=== PATIENT | female | born 1955 | race Caucasian/White ===

== ENCOUNTER 2017-03-18 13:30 | Emergency (ER) | payer OTHER ==
[~2017-03-18 13:30] MED LIST: ASMANEX220 MCG INH; ASTHMANEX; CIPROFLOXACIN500 MG PO; COREG12.5 MG PO; CYMBALTA60 MG PO; FLEXERIL10 MG PO; HYDROCODONE BIT1 T11 PO; LIPITOR20 MG PO; LODINE400 MG PO; MOTRIN600 MG PO; MOTRIN800 MG PO; MS CONTIN30 MG PO; NEURONTIN300 MG PO; PERCOCET 325 MG1 TAB PO; PREDNICOT20 MG PO; PYRIDIUM200 MG PO; SPIRIVA -- 3018 MCG INH; VICODIN 5/500 505 MG PO; VOLTAREN75 MG PO; XANAX2 MG PO
== END 2017-03-18 15:50 | disposition home or self-care (01) ==
LOC: ED 13:30
DX: M71.22 Synovial cyst of popliteal space [Baker], left knee (principal); M25.562 Pain in left knee; F17.200 Nicotine dependence, unspecified, uncomplicated; Z88.1 Allergy status to other antibiotic agents; Z88.8 Allergy status to other drugs, medicaments and biological substances; Z79.899 Other long term (current) drug therapy

== ENCOUNTER → 2017-04-19 | Outpatient (CLI) | payer OTHER ==
[2017-04-19 15:25] LABS: BASO % 0.6 % (0.0-1.0); EOS # 0.2 10*3/uL (0.0-0.4); EOS % 3.5 % (1.0-4.0); HEMATOCRIT 47.2 % (37.0-47.0); HEMOGLOBIN 15.8 g/dl (12.0-16.0); LYMPH # 1.9 10*3/uL (1.3-4.4); LYMPH % 27.4 % (27.0-41.0); MEAN CELL VOLUME 92.7 fl (81.0-99.0); MEAN CORPUSCULAR HGB CONC 33.5 g/dl (33.0-37.0); MEAN PLATELET VOLUME 9.5 fl (9.6-12.3); MONO # 0.6 10*3/uL (0.1-1.0); MONO % 8.5 % (3.0-9.0); NEUT # 4.1 10*3/uL (2.3-7.9); NEUT % 59.9 % (47.0-73.0); PLATELET COUNT AUTOMATED 178 10*3/uL (130-400); RED BLOOD COUNT 5.09 10*6/uL (4.10-5.10); RED CELL DISTRI WIDTH 13.3 % (0-14.5); WHITE BLOOD COUNT 6.8 10*3/uL (4.8-10.8)
[2017-04-19 15:49] LABS: ALBUMIN 3.6 gm/dl (3.1-4.5); ALKALINE PHOSPHATASE 35 U/L (45-117); BUN 11 mg/dl (7-24); CHLORIDE 105 mmol/L (98-107); CREATININE 0.75 mg/dL (0.55-1.02); POTASSIUM 3.4 mmol/L (3.5-5.1); SGOT/AST 17 IU/L (3-35); SGPT/ALT 17 U/L (12-78); SODIUM 141 mmol/L (136-145); TOTAL PROTEIN 7.5 gm/dL (6.4-8.2)
== END | disposition home or self-care (01) ==
LOC: LAB 14:55
DX: M05.79 Rheumatoid arthritis with rheumatoid factor of multiple sites without organ or systems involvement (principal)

== ENCOUNTER → 2017-07-28 | Outpatient (CLI) | payer OTHER ==
[2017-07-28 14:55] LABS: BASO # 0.1 10*3/uL (0.0-0.1); BASO % 0.6 % (0.0-1.0); EOS # 0.2 10*3/uL (0.0-0.4); EOS % 2.5 % (1.0-4.0); HEMATOCRIT 43.5 % (37.0-47.0); HEMOGLOBIN 14.8 g/dl (12.0-16.0); LYMPH # 1.4 10*3/uL (1.3-4.4); LYMPH % 16.3 % (27.0-41.0); MEAN CELL VOLUME 94.2 fl (81.0-99.0); MEAN PLATELET VOLUME 9.6 fl (9.6-12.3); MONO # 0.6 10*3/uL (0.1-1.0); MONO % 6.8 % (3.0-9.0); NEUT # 6.1 10*3/uL (2.3-7.9); NEUT % 73.3 % (47.0-73.0); PLATELET COUNT AUTOMATED 192 10*3/uL (130-400); RED BLOOD COUNT 4.62 10*6/uL (4.10-5.10); WHITE BLOOD COUNT 8.4 10*3/uL (4.8-10.8)
[2017-07-28 15:18] LABS: ALBUMIN 3.8 gm/dl (3.1-4.5); ALKALINE PHOSPHATASE 36 U/L (45-117); BUN 18 mg/dl (7-24); CHLORIDE 102 mmol/L (98-107); CREATININE 0.75 mg/dL (0.55-1.02); POTASSIUM 3.7 mmol/L (3.5-5.1); SGOT/AST 19 IU/L (3-35); SGPT/ALT 27 U/L (12-78); SODIUM 139 mmol/L (136-145); TOTAL PROTEIN 7.2 gm/dL (6.4-8.2)
[2017-07-28 15:25] LABS: THYROID STIM HORMONE (HS) 0.589 uIU/ml (0.358-4.75)
[2017-07-28 15:36] LABS: VITAMIN D, 25-HYDROXY 25.2 ng/mL (30-100)
== END | disposition home or self-care (01) ==
LOC: LAB 14:22
PROVIDERS: General Practice
DX: Z51.81 Encounter for therapeutic drug level monitoring (principal); M05.79 Rheumatoid arthritis with rheumatoid factor of multiple sites without organ or systems involvement; Z79.899 Other long term (current) drug therapy; E55.9 Vitamin D deficiency, unspecified

== ENCOUNTER → 2017-11-30 | Outpatient (CLI) | payer OTHER ==
[2017-11-30 11:06] LABS: BASO % 0.6 % (0.0-1.0); EOS # 0.4 10*3/uL (0.0-0.4); EOS % 7.4 % (1.0-4.0); HEMATOCRIT 42.3 % (37.0-47.0); HEMOGLOBIN 13.6 g/dl (12.0-16.0); LYMPH # 1.2 10*3/uL (1.3-4.4); MEAN CELL VOLUME 97.7 fl (81.0-99.0); MEAN CORPUSCULAR HGB 31.4 pg (27.0-31.0); MEAN CORPUSCULAR HGB CONC 32.2 g/dl (33.0-37.0); MEAN PLATELET VOLUME 9.8 fl (9.6-12.3); MONO # 0.5 10*3/uL (0.1-1.0); MONO % 10.4 % (3.0-9.0); NEUT # 2.6 10*3/uL (2.3-7.9); NEUT % 55.2 % (47.0-73.0); PLATELET COUNT AUTOMATED 170 10*3/uL (130-400); RED BLOOD COUNT 4.33 10*6/uL (4.10-5.10); RED CELL DISTRI WIDTH 13.1 % (0-14.5); WHITE BLOOD COUNT 4.7 10*3/uL (4.8-10.8)
[2017-11-30 11:51] LABS: ALBUMIN 3.5 gm/dl (3.1-4.5); ALKALINE PHOSPHATASE 31 U/L (45-117); BUN 12 mg/dl (7-24); CHLORIDE 99 mmol/L (98-107); POTASSIUM 3.3 mmol/L (3.5-5.1); SGOT/AST 18 IU/L (3-35); SGPT/ALT 16 U/L (12-78); SODIUM 139 mmol/L (136-145); TOTAL PROTEIN 6.8 gm/dL (6.4-8.2)
== END | disposition home or self-care (01) ==
LOC: LAB 10:25
PROVIDERS: General Practice
DX: M06.9 Rheumatoid arthritis, unspecified (principal)

== ENCOUNTER → 2019-01-10 | Outpatient (CLI) | payer OTHER ==
[~2019-01-10] MED LIST changes: +CEPHALEXIN500 M1 PO
== END | disposition home or self-care (01) ==
LOC: RAD 16:23
DX: M19.041 Primary osteoarthritis, right hand (principal); R60.9 Edema, unspecified; M06.9 Rheumatoid arthritis, unspecified

== ENCOUNTER → 2019-05-22 | Outpatient (CLI) | payer OTHER | END | disposition home or self-care (01) | LOC: RAD 11:41 | DX: M51.36 Other intervertebral disc degeneration, lumbar region (principal); M54.16 Radiculopathy, lumbar region; G89.29 Other chronic pain ==

== ENCOUNTER → 2019-09-14 | Outpatient (CLI) | payer OTHER ==
[2019-09-14 10:17] LABS: HEMATOCRIT 47.5 % (37.0-47.0); MEAN CELL VOLUME 96.2 fl (81.0-99.0); MEAN CORPUSCULAR HGB 30.4 pg (27.0-31.0); MEAN CORPUSCULAR HGB CONC 31.6 g/dl (33.0-37.0); RED BLOOD COUNT 4.94 10*6/uL (4.10-5.10); RED CELL DISTRI WIDTH 14.5 % (0-14.5); WHITE BLOOD COUNT 7.1 10*3/uL (4.8-10.8)
[2019-09-14 10:20] LABS: ALBUMIN 3.6 gm/dl (3.1-4.5); ALKALINE PHOSPHATASE 46 U/L (45-117); BUN 19 mg/dl (7-24); CHLORIDE 105 mmol/L (98-107); CHOLESTEROL 132 mg/dL (<200); CREATININE 0.96 mg/dL (0.55-1.02); HDL CHOLESTEROL 64 mg/dl (40-60); LDL CHOLESTEROL 56 mg/dL (9-159); SGOT/AST 18 IU/L (3-35); SGPT/ALT 21 U/L (12-78); SODIUM 140 mmol/L (136-145); TOTAL PROTEIN 7.4 gm/dL (6.4-8.2); TRIGLYCERIDES 62 mg/dl (<150); VLDL CHOLESTEROL 12 mg/dL (6-40)
[2019-09-14 10:25] LABS: THYROID STIM HORMONE (HS) 0.496 uIU/ml (0.358-4.75)
== END | disposition home or self-care (01) ==
LOC: LAB 09:24
PROVIDERS: Registered Nurse Flight
DX: E03.9 Hypothyroidism, unspecified (principal); M05.79 Rheumatoid arthritis with rheumatoid factor of multiple sites without organ or systems involvement; E78.5 Hyperlipidemia, unspecified

== ENCOUNTER → 2020-11-14 | Outpatient (CLI) | payer OTHER | END | disposition home or self-care (01) | LOC: COVID19 08:45 | PROVIDERS: ATTEND Internal Medicine | DX: Z11.52 Encounter for screening for COVID-19 (principal) ==

== ENCOUNTER 2021-06-10 10:31 | Emergency (ER) | payer OTHER ==
[~2021-06-10] VITALS: Ht 162.5 cm; Wt 64.9 kg
[2021-06-10 11:28] LABS: BASO % 0.4 % (0.0-1.0); EOS % 0.4 % (1.0-4.0); HEMATOCRIT 52.5 % (37.0-47.0); LYMPH # 1.9 10*3/uL (1.3-4.4); LYMPH % 19.6 % (27.0-41.0); MEAN CORPUSCULAR HGB 29.8 pg (27.0-31.0); MEAN PLATELET VOLUME 10.7 fl (9.6-12.3); MONO # 1.5 10*3/uL (0.1-1.0); MONO % 15.2 % (3.0-9.0); NEUT # 6.3 10*3/uL (2.3-7.9); NEUT % 63.8 % (47.0-73.0); PLATELET COUNT AUTOMATED 180 10*3/uL (130-400); RED BLOOD COUNT 6.18 10*6/uL (4.10-5.10); RED CELL DISTRI WIDTH 16.8 % (0-14.5); WHITE BLOOD COUNT 9.9 10*3/uL (4.8-10.8)
[2021-06-10 11:40] LABS: INTERNATIONAL NORM RATIO 1.1 (2.0-3.5)
[2021-06-10 11:43] LABS: ALBUMIN 3.6 gm/dl (3.1-4.5); ALKALINE PHOSPHATASE 31 U/L (45-117); BUN 37 mg/dl (7-24); CHLORIDE 95 mmol/L (98-107); POTASSIUM 3.2 mmol/L (3.5-5.1); SGOT/AST 20 IU/L (3-35); SGPT/ALT 22 U/L (12-78); SODIUM 129 mmol/L (136-145); TOTAL PROTEIN 7.9 gm/dL (6.4-8.2)
[2021-06-10 11:46] LABS: TROPONIN I < 0.015 ng/ml (<0.045)
[2021-06-10 15:22] LABS: BILIRUBIN Negative (Negative); BLOOD Negative (Negative); CLARITY Clear (Clear); COLOR Yellow (Yellow); GLUCOSE Negative (Negative); KETONE Trace (Negative); LEUKO ESTERASE Negative (Negative); NITRITE Negative (Negative); PH 5.5 (4.5-8.0); SPECIFIC GRAVITY >= 1.030 (1.001-1.030)
[2021-06-10 15:38] LABS: BACTERIA TRACE; CALCIUM OXALATE CRYSTALS Trace; WBC 0-2 wbc/hpf (0-5)
== END 2021-06-10 15:14 | disposition home or self-care (01) ==
LOC: ED 10:31
PROVIDERS: Emergency Medicine; Physician Assistant
DX: G89.29 Other chronic pain (principal); M54.9 Dorsalgia, unspecified; M54.6 Pain in thoracic spine; R42 Dizziness and giddiness; R41.0 Disorientation, unspecified; Z88.8 Allergy status to other drugs, medicaments and biological substances; Z88.1 Allergy status to other antibiotic agents; Z79.899 Other long term (current) drug therapy

== ENCOUNTER → 2021-07-23 | Outpatient (CLI) | payer OTHER ==
[~2021-07-23] MED LIST changes: +LEVETIRACETAM500 M3 PO; +LOSARTAN POTASS50 M1 PO; +PERCOCET 7.5-31 EACH PO; +PLAQUENIL200 MG PO
== END | disposition home or self-care (01) ==
LOC: RAD 13:25
PROVIDERS: ATTEND Nurse Practitioner Primary Care
DX: Z13.820 Encounter for screening for osteoporosis (principal); Z78.0 Asymptomatic menopausal state; E04.9 Nontoxic goiter, unspecified; R94.6 Abnormal results of thyroid function studies

== ENCOUNTER 2021-07-25 17:01 | Inpatient (IN) | payer OTHER ==
[~2021-07-25] VITALS: Ht 162.6 cm; Wt 66.7 kg
[~2021-07-25 17:01] MED LIST changes: -LEVETIRACETAM500 M3 PO; -LOSARTAN POTASS50 M1 PO; -PERCOCET 7.5-31 EACH PO; -PLAQUENIL200 MG PO
[2021-07-25 17:06] VITALS: BP 167/99
[2021-07-25] MEDS ORDERED: PERCOCET 7.5-31 EACH PO (17:57)
[2021-07-25] MEDS ORDERED: PLAQUENIL200 MG PO (17:58)
[2021-07-25 18:03] LABS: HEMATOCRIT 57.7 % (37.0-47.0); MEAN CORPUSCULAR HGB 29.6 pg (27.0-31.0); MEAN CORPUSCULAR HGB CONC 33.3 g/dl (33.0-37.0); MEAN PLATELET VOLUME 10.1 fl (9.6-12.3); NUCLEATED RED BLOOD CELL 0.2 % (0.0-0.0); PLATELET COUNT AUTOMATED 154 10*3/uL (130-400); RED BLOOD COUNT 6.48 10*6/uL (4.10-5.10); RED CELL DISTRI WIDTH 14.1 % (0-14.5); WHITE BLOOD COUNT 18.6 10*3/uL (4.8-10.8)
[2021-07-25 18:20] LABS: ACT PARTIAL THROMBO TIME 23.8 SECONDS (20.0-32.1); INTERNATIONAL NORM RATIO 1.1 (2.0-3.5)
[2021-07-25 18:20] LABS: ABG BASE EXCESS 7.2 mmol/L (-2.0-2.0); ARTERIAL BLOOD GAS PH 7.538 (7.35-7.45); ARTERIAL BLOOD GAS PO2 47.1 (80-90)
[2021-07-25 18:26] LABS: ALBUMIN 3.7 gm/dl (3.1-4.5); CREATININE 1.44 mg/dL (0.55-1.02); POTASSIUM 3.5 mmol/L (3.5-5.1); TOTAL PROTEIN 9.2 gm/dL (6.4-8.2)
[2021-07-25 18:30] LABS: TOTAL CELLS COUNTED 100 #CELLS
[2021-07-25 18:31] LABS: PLATELET SUFFICIENCY NORMAL (NORMAL)
[2021-07-25 18:42] LABS: BILIRUBIN 2+ (Negative); BLOOD 2+ (Negative); CLARITY Cloudy (Clear); COLOR Dark Yellow (Yellow); GLUCOSE 1+ (Negative); KETONE 1+ (Negative); LEUKO ESTERASE Trace (Negative); NITRITE Negative (Negative); PH 7.5 (4.5-8.0); SPECIFIC GRAVITY >= 1.030 (1.001-1.030); UROBILINOGEN 0.2 E.U./dl (0.0-1.0)
[2021-07-25 19:09] LABS: BACTERIA 1+; EPITHELIAL CELLS 21-30; HYALINE CAST TNTC
[2021-07-25 19:21] LABS: URINE AMPHETAMINES < 1000 (1000ng/ml); URINE BARBITURATES < 200 (200ng/ml); URINE BENZODIAZEPINES < 200 (200ng/ml); URINE CANNABINOIDS (THC) > 50 (50ng/ml); URINE COCAINE < 300 (300ng/ml); URINE METHADONE < 300 (300ng/ml); URINE OPIATES > 300 (300ng/ml)
[2021-07-25 19:23] LABS: URINE PHENCYCLIDINE < 25 (25ng/ml)
[2021-07-25 19:24] VITALS: BP 178/97
[2021-07-26 05:15] LABS: ALBUMIN 3.1 gm/dl (3.1-4.5); ALKALINE PHOSPHATASE 36 U/L (45-117); BUN 27 mg/dl (7-24); CHLORIDE 97 mmol/L (98-107); CHOLESTEROL 177 mg/dL (<200); CREATININE 0.97 mg/dL (0.55-1.02); LDL CHOLESTEROL 83 mg/dL (9-159); SGOT/AST 32 IU/L (3-35); SGPT/ALT 22 U/L (12-78); SODIUM 135 mmol/L (136-145); TOTAL PROTEIN 7.3 gm/dL (6.4-8.2); TRIGLYCERIDES 95 mg/dl (<150)
[2021-07-26 05:19] LABS: THYROID STIM HORMONE (HS) 0.131 uIU/ml (0.358-4.75)
[2021-07-26 06:06] LABS: HEMATOCRIT 50.9 % (37.0-47.0); MEAN CELL VOLUME 89.3 fl (81.0-99.0); MEAN CORPUSCULAR HGB 29.8 pg (27.0-31.0); MEAN CORPUSCULAR HGB CONC 33.4 g/dl (33.0-37.0); MEAN PLATELET VOLUME 11.1 fl (9.6-12.3); PLATELET COUNT AUTOMATED 110 10*3/uL (130-400); RED CELL DISTRI WIDTH 14.3 % (0-14.5); WHITE BLOOD COUNT 15.3 10*3/uL (4.8-10.8)
[2021-07-26 06:20] VITALS: BP 171/81
[2021-07-26 07:02] LABS: PLATELET SUFFICIENCY LOW (NORMAL); TOTAL CELLS COUNTED 100 #CELLS
[2021-07-26 07:03] LABS: BURR CELLS FEW
[2021-07-26 08:33] VITALS: BP 128/58
[2021-07-26 10:24] VITALS: BP 141/60
[2021-07-26 16:40] VITALS: BP 170/90
[2021-07-26 20:00] VITALS: BP 147/68
[2021-07-27] VITALS (9 sets, daily range): BP systolic 164–202; BP diastolic 64–92
[2021-07-27 06:26] LABS: HEMATOCRIT 45.8 % (37.0-47.0); MEAN CELL VOLUME 90.5 fl (81.0-99.0); MEAN CORPUSCULAR HGB 29.8 pg (27.0-31.0); MEAN PLATELET VOLUME 10.3 fl (9.6-12.3); PLATELET COUNT AUTOMATED 82 10*3/uL (130-400); RED BLOOD COUNT 5.06 10*6/uL (4.10-5.10); RED CELL DISTRI WIDTH 14.4 % (0-14.5)
[2021-07-27] MEDS ORDERED: LOSARTAN POTASS50 M1 PO (06:34)
[2021-07-27 06:48] LABS: ALBUMIN 2.8 gm/dl (3.1-4.5); ALKALINE PHOSPHATASE 27 U/L (45-117); BUN 24 mg/dl (7-24); FREE T4 0.98 ng/dl (0.76-1.46); SGOT/AST 34 IU/L (3-35); SGPT/ALT 21 U/L (12-78); TOTAL PROTEIN 6.4 gm/dL (6.4-8.2)
[2021-07-27 07:43] LABS: POLYCHROMASIA SLIGHT; TOTAL CELLS COUNTED 100 #CELLS
[2021-07-27 07:44] LABS: PLATELET SUFFICIENCY LOW (NORMAL); SCHISTOCYTES FEW
[2021-07-27 07:50] LABS: CHLORIDE 101 mmol/L (98-107); POTASSIUM 3.3 mmol/L (3.5-5.1); SODIUM 138 mmol/L (136-145)
[2021-07-27] MEDS ORDERED: LEVETIRACETAM500 M3 PO (11:55)
== END 2021-07-27 13:46 | disposition home or self-care (01) | DRG 720 ==
LOC: ED 17:01 → EDHOLD 20:23 → 4E 20:23 → EDHOLD 20:49 → 4E 07-26 15:57
PROVIDERS: Emergency Medicine; Internal Medicine; Physician Assistant; ADMIT Internal Medicine; ATTEND Internal Medicine
DX: A41.9 Sepsis, unspecified organism (principal); N30.01 Acute cystitis with hematuria; G93.41 Metabolic encephalopathy; R56.9 Unspecified convulsions; E87.1 Hypo-osmolality and hyponatremia; E87.2 Acidosis; N17.0 Acute kidney failure with tubular necrosis; I10 Essential (primary) hypertension; Z20.822 Contact with and (suspected) exposure to COVID-19; D75.1 Secondary polycythemia; R65.20 Severe sepsis without septic shock; R73.9 Hyperglycemia, unspecified; E80.6 Other disorders of bilirubin metabolism; F17.210 Nicotine dependence, cigarettes, uncomplicated; M54.50 Low back pain, unspecified; G89.29 Other chronic pain; J44.9 Chronic obstructive pulmonary disease, unspecified; R74.01 Elevation of levels of liver transaminase levels; Z71.6 Tobacco abuse counseling; Z82.3 Family history of stroke; Z82.49 Family history of ischemic heart disease and other diseases of the circulatory system; Z88.5 Allergy status to narcotic agent; Z88.1 Allergy status to other antibiotic agents; Z88.8 Allergy status to other drugs, medicaments and biological substances; Z79.1 Long term (current) use of non-steroidal anti-inflammatories (NSAID); Z79.899 Other long term (current) drug therapy

== ENCOUNTER 2021-09-01 17:25 | Inpatient (IN) | payer OTHER ==
[~2021-09-01] VITALS: Ht 160 cm; Wt 73.9 kg
[~2021-09-01 17:25] MED LIST changes: +LEVETIRACETAM500 M3 PO; +LOSARTAN POTASS50 M1 PO; +PERCOCET 7.5-31 EACH PO; +PLAQUENIL200 MG PO
[2021-09-01 17:38] VITALS: BP 105/55
[2021-09-01 17:50] LABS: ABG BASE EXCESS 2.7 mmol/L (-2.0-2.0); ARTERIAL BLOOD GAS PH 7.28 (7.35-7.45); ARTERIAL BLOOD GAS PO2 62.9 (80-90)
[2021-09-01 18:03] LABS: BASO % 0.6 % (0.0-1.0); EOS # 0.1 10*3/uL (0.0-0.4); EOS % 1.3 % (1.0-4.0); HEMATOCRIT 45.2 % (37.0-47.0); LYMPH # 0.9 10*3/uL (1.3-4.4); MEAN CELL VOLUME 98.5 fl (81.0-99.0); MEAN CORPUSCULAR HGB 30.3 pg (27.0-31.0); MEAN CORPUSCULAR HGB CONC 30.8 g/dl (33.0-37.0); MEAN PLATELET VOLUME 9.5 fl (9.6-12.3); MONO # 0.3 10*3/uL (0.1-1.0); MONO % 5.5 % (3.0-9.0); NEUT # 3.9 10*3/uL (2.3-7.9); NEUT % 75.2 % (47.0-73.0); PLATELET COUNT AUTOMATED 166 10*3/uL (130-400); RED BLOOD COUNT 4.59 10*6/uL (4.10-5.10); RED CELL DISTRI WIDTH 13.9 % (0-14.5); WHITE BLOOD COUNT 5.2 10*3/uL (4.8-10.8)
[2021-09-01 18:14] LABS: ACT PARTIAL THROMBO TIME 26.8 SECONDS (20.0-32.1)
[2021-09-01 18:16] VITALS: BP 108/60
[2021-09-01 18:20] LABS: ACETAMINOPHEN (TYLENOL) < 5.0 ug/ml (10-30); ALBUMIN 3.1 gm/dl (3.1-4.5); ALKALINE PHOSPHATASE 34 U/L (45-117); BUN 15 mg/dl (7-24); CHLORIDE 101 mmol/L (98-107); CREATININE 1.24 mg/dL (0.55-1.02); ETHYL ALCOHOL < 3.0 mg/dl (<3); POTASSIUM 4.8 mmol/L (3.5-5.1); SGOT/AST 79 IU/L (3-35); SGPT/ALT 33 U/L (12-78); SODIUM 135 mmol/L (136-145)
[2021-09-01 18:34] LABS: CPK 1339 U/L (26-192)
[2021-09-01 21:35] VITALS: BP 140/61
[2021-09-02] MEDS ORDERED: K-TAB10 MEQ PO (01:16)
[2021-09-02] MEDS ORDERED: CLOPIDOGREL75 MG PO (01:18)
[2021-09-02] MEDS ORDERED: LASIX20 MG PO (01:20)
[2021-09-02] MEDS ORDERED: NATURE'S BLEND F1 MG PO (01:21)
[2021-09-02] MEDS ORDERED: METHOTREXATE S2.5 M1 PO (01:23)
[2021-09-02] MEDS ORDERED: CARVEDILOL25 MG PO (01:24)
[2021-09-02] MEDS ORDERED: ZOCOR20 MG PO (01:26)
[2021-09-02] MEDS ORDERED: [UNRECOGNIZED DRUG - OTHER] PO (01:28)
[2021-09-02] MEDS ORDERED: LEADER NATUR1000 MCG PO (01:30)
[2021-09-02] MEDS ORDERED: MECLIZINE HCL25 M2 PO (01:33)
[2021-09-02] MEDS ORDERED: VITAMIN D350 MC2 PO (01:35)
[2021-09-02 06:40] LABS: ALBUMIN 2.7 gm/dl (3.1-4.5); BUN 14 mg/dl (7-24); CHLORIDE 105 mmol/L (98-107); SGOT/AST 88 IU/L (3-35); SGPT/ALT 36 U/L (12-78); SODIUM 138 mmol/L (136-145); TOTAL PROTEIN 6.4 gm/dL (6.4-8.2)
[2021-09-02 06:56] LABS: ALKALINE PHOSPHATASE 31 U/L (45-117)
[2021-09-02 06:57] LABS: BASO # 0.1 10*3/uL (0.0-0.1); BASO % 0.7 % (0.0-1.0); CPK 1228 U/L (26-192); EOS # 0.2 10*3/uL (0.0-0.4); EOS % 2.7 % (1.0-4.0); HEMATOCRIT 40.7 % (37.0-47.0); LYMPH # 1.3 10*3/uL (1.3-4.4); LYMPH % 19.2 % (27.0-41.0); MEAN CELL VOLUME 97.4 fl (81.0-99.0); MEAN CORPUSCULAR HGB 30.6 pg (27.0-31.0); MEAN CORPUSCULAR HGB CONC 31.4 g/dl (33.0-37.0); MEAN PLATELET VOLUME 10.4 fl (9.6-12.3); MONO # 0.7 10*3/uL (0.1-1.0); MONO % 9.6 % (3.0-9.0); NEUT # 4.6 10*3/uL (2.3-7.9); NEUT % 67.5 % (47.0-73.0); PLATELET COUNT AUTOMATED 153 10*3/uL (130-400); RED BLOOD COUNT 4.18 10*6/uL (4.10-5.10); RED CELL DISTRI WIDTH 13.9 % (0-14.5); WHITE BLOOD COUNT 6.8 10*3/uL (4.8-10.8)
[2021-09-02 08:03] LABS: ABG BASE EXCESS 3.6 mmol/L (-2.0-2.0); ARTERIAL BLOOD GAS PH 7.339 (7.35-7.45); ARTERIAL BLOOD GAS PO2 80.1 (80-90)
[2021-09-02 14:05] LABS: BILIRUBIN Negative (Negative); BLOOD Negative (Negative); CLARITY Clear (Clear); COLOR Yellow (Yellow); GLUCOSE Negative (Negative); KETONE Trace (Negative); LEUKO ESTERASE 1+ (Negative); NITRITE Negative (Negative); SPECIFIC GRAVITY 1.015 (1.001-1.030); UROBILINOGEN 0.2 E.U./dl (0.0-1.0)
[2021-09-02 14:19] LABS: BACTERIA 2+; MUCOUS 2+; RBC 0-2 rbc/hpf (0-2)
[2021-09-02 14:24] LABS: URINE BARBITURATES < 200 (200ng/ml); URINE CANNABINOIDS (THC) > 50 (50ng/ml); URINE METHADONE < 300 (300ng/ml); URINE OPIATES > 300 (300ng/ml)
[2021-09-02 14:25] LABS: URINE AMPHETAMINES > 1000 (1000ng/ml); URINE BENZODIAZEPINES < 200 (200ng/ml); URINE COCAINE < 300 (300ng/ml)
[2021-09-02 14:27] LABS: URINE PHENCYCLIDINE < 25 (25ng/ml)
[2021-09-02 16:00] VITALS: BP 172/95
[2021-09-02 20:00] VITALS: BP 196/89
[2021-09-03] VITALS (10 sets, daily range): BP systolic 143–198; BP diastolic 80–100
[2021-09-03 06:06] LABS: ALKALINE PHOSPHATASE 28 U/L (45-117); BUN 14 mg/dl (7-24); CHLORIDE 105 mmol/L (98-107); CREATININE 0.59 mg/dL (0.55-1.02); POTASSIUM 3.9 mmol/L (3.5-5.1); SGOT/AST 82 IU/L (3-35); SGPT/ALT 41 U/L (12-78); SODIUM 138 mmol/L (136-145); TOTAL PROTEIN 6.8 gm/dL (6.4-8.2)
[2021-09-03 07:06] LABS: BASO % 0.2 % (0.0-1.0); HEMATOCRIT 39.6 % (37.0-47.0); LYMPH # 0.8 10*3/uL (1.3-4.4); LYMPH % 14.8 % (27.0-41.0); MEAN CORPUSCULAR HGB 30.1 pg (27.0-31.0); MEAN CORPUSCULAR HGB CONC 33.1 g/dl (33.0-37.0); MEAN PLATELET VOLUME 10.5 fl (9.6-12.3); MONO # 0.6 10*3/uL (0.1-1.0); MONO % 11.2 % (3.0-9.0); NEUT # 3.8 10*3/uL (2.3-7.9); NEUT % 73.6 % (47.0-73.0); PLATELET COUNT AUTOMATED 163 10*3/uL (130-400); RED BLOOD COUNT 4.35 10*6/uL (4.10-5.10); RED CELL DISTRI WIDTH 13.1 % (0-14.5); WHITE BLOOD COUNT 5.2 10*3/uL (4.8-10.8)
[2021-09-04] VITALS (7 sets, daily range): BP systolic 134–202; BP diastolic 60–102
[2021-09-05] VITALS: BP 142/79
[2021-09-05 07:04] LABS: ALBUMIN 2.9 gm/dl (3.1-4.5); ALKALINE PHOSPHATASE 24 U/L (45-117); BUN 20 mg/dl (7-24); CHLORIDE 106 mmol/L (98-107); POTASSIUM 3.7 mmol/L (3.5-5.1); SGOT/AST 21 IU/L (3-35); SGPT/ALT 31 U/L (12-78); SODIUM 138 mmol/L (136-145); TOTAL PROTEIN 6.4 gm/dL (6.4-8.2)
[2021-09-05 08:00] VITALS: BP 178/88
[2021-09-05] MEDS ORDERED: TAMIFLU 75MG CA75 MG PO (11:31)
[2021-09-05] MEDS ORDERED: DECADRON6 M1 PO (11:31)
[2021-09-05] MEDS ORDERED: LOSARTAN POTAS100 M1 PO (11:31)
[2021-09-05] MEDS ORDERED: AMLODIPINE BESYL5 MG PO (11:31)
[2021-09-07 15:06] LABS: CREATININE, RANDOM URINE 106.4 mg/dL (Not Estab.)
== END 2021-09-05 14:53 | disposition home or self-care (01) | DRG 137 ==
LOC: ED 17:25 → EDHOLD 18:42 → 4E 18:42
PROVIDERS: Emergency Medicine; Internal Medicine; ADMIT Internal Medicine; ATTEND Internal Medicine
PROC: XW033E5 Introduction of Remdesivir Anti-infective into Peripheral Vein, Percutaneous Approach, New Technology Group 5 (ICD-10-PCS; principal; 2021-09-01)
PROC: 5A09357 Assistance with Respiratory Ventilation, Less than 24 Consecutive Hours, Continuous Positive Airway Pressure (ICD-10-PCS; 2021-09-01)
PROC: 5A09357 Assistance with Respiratory Ventilation, Less than 24 Consecutive Hours, Continuous Positive Airway Pressure (ICD-10-PCS; 2021-09-03)
PROC: 5A09357 Assistance with Respiratory Ventilation, Less than 24 Consecutive Hours, Continuous Positive Airway Pressure (ICD-10-PCS; 2021-09-04)
DX: U07.1 COVID-19 (principal); N17.0 Acute kidney failure with tubular necrosis; G93.41 Metabolic encephalopathy; J44.1 Chronic obstructive pulmonary disease with (acute) exacerbation; J10.1 Influenza due to other identified influenza virus with other respiratory manifestations; K20.90 Esophagitis, unspecified without bleeding; E43 Unspecified severe protein-calorie malnutrition; J12.82 Pneumonia due to coronavirus disease 2019; J44.0 Chronic obstructive pulmonary disease with (acute) lower respiratory infection; E87.2 Acidosis; M62.82 Rhabdomyolysis; J96.01 Acute respiratory failure with hypoxia; J96.02 Acute respiratory failure with hypercapnia; Z20.822 Contact with and (suspected) exposure to COVID-19; R73.9 Hyperglycemia, unspecified; I10 Essential (primary) hypertension; M06.9 Rheumatoid arthritis, unspecified; J98.11 Atelectasis; Z88.5 Allergy status to narcotic agent; Z88.8 Allergy status to other drugs, medicaments and biological substances

== ENCOUNTER 2021-12-04 20:23 | Inpatient (IN) | payer OTHER ==
[~2021-12-04] VITALS: Ht 162.5 cm; Wt 73.2 kg
[~2021-12-04 20:23] MED LIST changes: +AMLODIPINE BESYL5 MG PO; +CARVEDILOL25 MG PO; +CLOPIDOGREL75 MG PO; +DECADRON6 M1 PO; +K-TAB10 MEQ PO; +LASIX20 MG PO; +LEADER NATUR1000 MCG PO; +LOSARTAN POTAS100 M1 PO; +MECLIZINE HCL25 M2 PO; +METHOTREXATE S2.5 M1 PO; +NATURE'S BLEND F1 MG PO; +TAMIFLU 75MG CA75 MG PO; +VITAMIN D350 MC2 PO; +ZOCOR20 MG PO; +[UNRECOGNIZED DRUG - OTHER] PO
[2021-12-04 20:31] VITALS: BP 132/86
[2021-12-04] MEDS ORDERED: METHOCARBAMOL500 M1 PO (22:53)
[2021-12-04 23:04] VITALS: BP 136/72
[2021-12-04 23:24] LABS: BASO % 0.4 % (0.0-1.0); EOS # 0.3 10*3/uL (0.0-0.4); EOS % 4.5 % (1.0-4.0); HEMATOCRIT 41.5 % (37.0-47.0); LYMPH # 1.9 10*3/uL (1.3-4.4); LYMPH % 24.7 % (27.0-41.0); MEAN CELL VOLUME 98.8 fl (81.0-99.0); MEAN CORPUSCULAR HGB 30.2 pg (27.0-31.0); MEAN CORPUSCULAR HGB CONC 30.6 g/dl (33.0-37.0); MEAN PLATELET VOLUME 9.8 fl (9.6-12.3); MONO # 0.9 10*3/uL (0.1-1.0); MONO % 12.4 % (3.0-9.0); NEUT # 4.4 10*3/uL (2.3-7.9); NEUT % 57.7 % (47.0-73.0); PLATELET COUNT AUTOMATED 165 10*3/uL (130-400); RED CELL DISTRI WIDTH 15.4 % (0-14.5); WHITE BLOOD COUNT 7.6 10*3/uL (4.8-10.8)
[2021-12-04 23:28] VITALS: BP 145/73
[2021-12-04 23:40] LABS: CREATININE 1.62 mg/dL (0.55-1.02); POTASSIUM 5.1 mmol/L (3.5-5.1); TOTAL PROTEIN 6.9 gm/dL (6.4-8.2)
[2021-12-05] VITALS (15 sets, daily range): BP systolic 88–190; BP diastolic 36–94
[2021-12-05 00:51] LABS: BILIRUBIN Negative (Negative); BLOOD Negative (Negative); CLARITY Clear (Clear); COLOR Yellow (Yellow); GLUCOSE Negative (Negative); KETONE Trace (Negative); LEUKO ESTERASE Negative (Negative); NITRITE Negative (Negative)
[2021-12-05 01:00] LABS: URINE AMPHETAMINES < 1000 (1000ng/ml); URINE BARBITURATES < 200 (200ng/ml); URINE BENZODIAZEPINES < 200 (200ng/ml); URINE CANNABINOIDS (THC) > 50 (50ng/ml); URINE COCAINE < 300 (300ng/ml); URINE METHADONE < 300 (300ng/ml); URINE OPIATES > 300 (300ng/ml)
[2021-12-05 01:09] LABS: URINE PHENCYCLIDINE < 25 (25ng/ml)
[2021-12-05 01:18] LABS: BACTERIA TRACE; RBC 0-2 rbc/hpf (0-2)
[2021-12-05 01:19] LABS: HYALINE CAST 0-2
[2021-12-05 06:04] LABS: CREATININE 1.14 mg/dL (0.55-1.02); POTASSIUM 4.8 mmol/L (3.5-5.1)
[2021-12-05 06:11] LABS: BASO % 0.5 % (0.0-1.0); EOS # 0.3 10*3/uL (0.0-0.4); EOS % 4.4 % (1.0-4.0); HEMATOCRIT 40.4 % (37.0-47.0); LYMPH # 1.2 10*3/uL (1.3-4.4); LYMPH % 17.7 % (27.0-41.0); MEAN CELL VOLUME 98.3 fl (81.0-99.0); MEAN CORPUSCULAR HGB 29.9 pg (27.0-31.0); MEAN CORPUSCULAR HGB CONC 30.4 g/dl (33.0-37.0); MONO # 0.7 10*3/uL (0.1-1.0); NEUT # 4.4 10*3/uL (2.3-7.9); NEUT % 66.1 % (47.0-73.0); PLATELET COUNT AUTOMATED 155 10*3/uL (130-400); RED BLOOD COUNT 4.11 10*6/uL (4.10-5.10); WHITE BLOOD COUNT 6.6 10*3/uL (4.8-10.8)
[2021-12-05 09:26] LABS: VITAMIN D, 25-HYDROXY 36.2 ng/mL (30-100)
[2021-12-06] VITALS: BP 154/90
[2021-12-06 06:11] LABS: BUN 16 mg/dl (7-24); CHLORIDE 102 mmol/L (98-107); CREATININE 0.76 mg/dL (0.55-1.02); SODIUM 139 mmol/L (136-145)
[2021-12-06 06:14] LABS: POTASSIUM 3.8 mmol/L (3.5-5.1)
[2021-12-06 06:39] LABS: BASO % 0.3 % (0.0-1.0); HEMATOCRIT 42.2 % (37.0-47.0); LYMPH % 12.4 % (27.0-41.0); MEAN CORPUSCULAR HGB 29.7 pg (27.0-31.0); MEAN CORPUSCULAR HGB CONC 32.7 g/dl (33.0-37.0); MEAN PLATELET VOLUME 10.4 fl (9.6-12.3); MONO # 0.8 10*3/uL (0.1-1.0); MONO % 10.5 % (3.0-9.0); NEUT # 5.9 10*3/uL (2.3-7.9); NEUT % 76.2 % (47.0-73.0); PLATELET COUNT AUTOMATED 201 10*3/uL (130-400); RED BLOOD COUNT 4.65 10*6/uL (4.10-5.10); RED CELL DISTRI WIDTH 14.6 % (0-14.5); WHITE BLOOD COUNT 7.8 10*3/uL (4.8-10.8)
[2021-12-06 06:40] LABS: MEAN CELL VOLUME 90.8 fl (81.0-99.0)
[2021-12-06 08:00] VITALS: BP 189/90
[2021-12-06 12:00] VITALS: BP 179/82
[2021-12-06 16:00] VITALS: BP 154/92
[2021-12-06 20:00] VITALS: BP 106/47; BP 151/83
[2021-12-07 00:01] VITALS: BP 143/80
[2021-12-07 04:00] VITALS: BP 155/89
[2021-12-07 05:16] LABS: BUN 18 mg/dl (7-24); CHLORIDE 102 mmol/L (98-107); CREATININE 0.72 mg/dL (0.55-1.02); POTASSIUM 3.7 mmol/L (3.5-5.1); SGOT/AST 24 IU/L (3-35); SGPT/ALT 15 U/L (12-78); SODIUM 136 mmol/L (136-145)
[2021-12-07 05:17] LABS: ALKALINE PHOSPHATASE 30 U/L (45-117); CPK 54 U/L (26-192); TOTAL PROTEIN 7.2 gm/dL (6.4-8.2)
[2021-12-07 06:27] LABS: BASO % 0.5 % (0.0-1.0); EOS # 0.1 10*3/uL (0.0-0.4); EOS % 1.7 % (1.0-4.0); HEMATOCRIT 45.5 % (37.0-47.0); LYMPH # 1.1 10*3/uL (1.3-4.4); LYMPH % 13.7 % (27.0-41.0); MEAN CORPUSCULAR HGB 29.9 pg (27.0-31.0); MEAN CORPUSCULAR HGB CONC 33.6 g/dl (33.0-37.0); MEAN PLATELET VOLUME 10.2 fl (9.6-12.3); MONO # 0.9 10*3/uL (0.1-1.0); MONO % 11.1 % (3.0-9.0); NEUT # 5.8 10*3/uL (2.3-7.9); NEUT % 72.5 % (47.0-73.0); PLATELET COUNT AUTOMATED 201 10*3/uL (130-400); RED BLOOD COUNT 5.11 10*6/uL (4.10-5.10); RED CELL DISTRI WIDTH 14.4 % (0-14.5)
[2021-12-07 08:00] VITALS: BP 174/96
[2021-12-07] MEDS ORDERED: VIMPAT50 MG PO (09:33)
== END 2021-12-07 10:45 | disposition short-term general hospital (02) | DRG 100 ==
LOC: ED 20:23 → EDHOLD 12-05 04:43 → ICCU 12-05 04:43 → 5E 12-05 05:11 → ICCU 12-06 19:09
PROVIDERS: Hospitalist; Internal Medicine; ADMIT Emergency Medicine; ATTEND Emergency Medicine
DX: G40.409 Other generalized epilepsy and epileptic syndromes, not intractable, without status epilepticus (principal); N17.0 Acute kidney failure with tubular necrosis; V89.2XXA Person injured in unspecified motor-vehicle accident, traffic, initial encounter; M54.2 Cervicalgia; I10 Essential (primary) hypertension; M06.9 Rheumatoid arthritis, unspecified; F11.90 Opioid use, unspecified, uncomplicated; R41.0 Disorientation, unspecified; F12.90 Cannabis use, unspecified, uncomplicated; J44.9 Chronic obstructive pulmonary disease, unspecified; R73.9 Hyperglycemia, unspecified; K59.00 Constipation, unspecified; Z82.3 Family history of stroke; Z82.0 Family history of epilepsy and other diseases of the nervous system; Z82.49 Family history of ischemic heart disease and other diseases of the circulatory system; Z88.5 Allergy status to narcotic agent; Z88.8 Allergy status to other drugs, medicaments and biological substances; Z88.1 Allergy status to other antibiotic agents; Y93.89 Activity, other specified; Y92.89 Other specified places as the place of occurrence of the external cause; Y99.8 Other external cause status

== ENCOUNTER → 2022-03-19 | Outpatient (CLI) | payer OTHER ==
[~2022-03-19] MED LIST changes: +METHOCARBAMOL500 M1 PO; +VIMPAT50 MG PO
== END | disposition home or self-care (01) ==
LOC: CT 13:00
PROVIDERS: ATTEND Nurse Practitioner Primary Care
DX: S09.90XA Unspecified injury of head, initial encounter (principal); T14.8XXA Other injury of unspecified body region, initial encounter; W19.XXXA Unspecified fall, initial encounter; Y93.89 Activity, other specified; Y92.89 Other specified places as the place of occurrence of the external cause; Y99.8 Other external cause status

== ENCOUNTER → 2022-08-30 | Outpatient (CLI) | payer OTHER | END | disposition home or self-care (01) | LOC: CT 11:00 | PROVIDERS: ATTEND Nurse Practitioner Primary Care | DX: R91.1 Solitary pulmonary nodule (principal); J43.9 Emphysema, unspecified; I25.10 Atherosclerotic heart disease of native coronary artery without angina pectoris; Z72.0 Tobacco use; R06.2 Wheezing; R05.3 Chronic cough ==

== ENCOUNTER → 2022-10-26 | Outpatient (CLI) | payer OTHER ==
[2022-10-26 11:55] LABS: BASO # 0.1 10*3/uL (0.0-0.1); BASO % 0.8 % (0.0-1.0); EOS # 0.6 10*3/uL (0.0-0.4); EOS % 7.7 % (1.0-4.0); HEMATOCRIT 52.3 % (37.0-47.0); LYMPH # 1.6 10*3/uL (1.3-4.4); LYMPH % 22.4 % (27.0-41.0); MEAN CELL VOLUME 91.8 fl (81.0-99.0); MEAN CORPUSCULAR HGB 27.2 pg (27.0-31.0); MEAN CORPUSCULAR HGB CONC 29.6 g/dl (33.0-37.0); MEAN PLATELET VOLUME 8.6 fl (9.6-12.3); MONO # 0.8 10*3/uL (0.1-1.0); MONO % 10.6 % (3.0-9.0); NEUT # 4.3 10*3/uL (2.3-7.9); NEUT % 58.2 % (47.0-73.0); PLATELET COUNT AUTOMATED 167 10*3/uL (130-400); RED CELL DISTRI WIDTH 15.1 % (0-14.5); WHITE BLOOD COUNT 7.3 10*3/uL (4.8-10.8)
[2022-10-26 13:11] LABS: ALKALINE PHOSPHATASE 46 U/L (46-116); BUN 10 mg/dl (9-23); CHLORIDE 103 mmol/L (98-107); CHOLESTEROL 133 mg/dL (<200); FREE T4 0.98 ng/dl (0.89-1.76); LDL CHOLESTEROL 61 mg/dL (9-159); THYROID STIM HORMONE (HS) 2.045 uIU/ml (0.550-4.780); TOTAL PROTEIN 7.3 gm/dL (6.0-8.0); TRIGLYCERIDES 88 mg/dl (<150)
[2022-10-26 13:17] LABS: SGPT/ALT < 7 U/L (10-49)
== END | disposition home or self-care (01) ==
LOC: LAB 11:39
PROVIDERS: ATTEND Nurse Practitioner Primary Care
DX: I10 Essential (primary) hypertension (principal); E78.5 Hyperlipidemia, unspecified; E55.9 Vitamin D deficiency, unspecified

== ENCOUNTER 2023-02-02 11:27 | Emergency (ER) | payer OTHER ==
[~2023-02-02] VITALS: Ht 162.5 cm; Wt 71.2 kg
== END 2023-02-02 12:40 | disposition left against medical advice (07) ==
LOC: ED 11:27
DX: S69.91XA Unspecified injury of right wrist, hand and finger(s), initial encounter (principal); J96.01 Acute respiratory failure with hypoxia; F17.200 Nicotine dependence, unspecified, uncomplicated; Z88.1 Allergy status to other antibiotic agents; Z88.5 Allergy status to narcotic agent; Z88.8 Allergy status to other drugs, medicaments and biological substances; Z79.899 Other long term (current) drug therapy; Z90.711 Acquired absence of uterus with remaining cervical stump; Z98.890 Other specified postprocedural states; W23.0XXA Caught, crushed, jammed, or pinched between moving objects, initial encounter; Y93.89 Activity, other specified; Y92.89 Other specified places as the place of occurrence of the external cause; Y99.8 Other external cause status

== ENCOUNTER 2023-02-14 16:15 | Inpatient (IN) | payer OTHER ==
[2023-02-14] VITALS (11 sets, daily range): BP systolic 98–170; BP diastolic 45–89
[~2023-02-14] VITALS: Ht 167.6 cm; Wt 81.0 kg
[2023-02-14 17:06] LABS: BASO % 0.2 % (0.0-1.0); HEMATOCRIT 49.4 % (37.0-47.0); LYMPH # 0.6 10*3/uL (1.3-4.4); LYMPH % 7.7 % (27.0-41.0); MEAN CELL VOLUME 93.4 fl (81.0-99.0); MEAN CORPUSCULAR HGB 27.4 pg (27.0-31.0); MEAN CORPUSCULAR HGB CONC 29.4 g/dl (33.0-37.0); MEAN PLATELET VOLUME 9.7 fl (9.6-12.3); MONO # 0.7 10*3/uL (0.1-1.0); MONO % 8.3 % (3.0-9.0); NEUT # 6.7 10*3/uL (2.3-7.9); NEUT % 83.7 % (47.0-73.0); PLATELET COUNT AUTOMATED 180 10*3/uL (130-400); RED BLOOD COUNT 5.29 10*6/uL (4.10-5.10); RED CELL DISTRI WIDTH 17.4 % (0-14.5); WHITE BLOOD COUNT 8.1 10*3/uL (4.8-10.8)
[2023-02-14 17:15] LABS: INTERNATIONAL NORM RATIO 1.2 (2.0-3.5)
[2023-02-14 17:21] LABS: BILIRUBIN 2+ (Negative); BLOOD Trace-Lysed (Negative); CLARITY Cloudy (Clear); COLOR Dark Yellow (Yellow); GLUCOSE Negative (Negative); KETONE Trace (Negative); LEUKO ESTERASE Trace (Negative); NITRITE Negative (Negative); SPECIFIC GRAVITY 1.025 (1.001-1.030)
[2023-02-14 17:30] LABS: URINE AMPHETAMINES Negative (1000ng/ml); URINE BARBITURATES Negative (200ng/ml); URINE BENZODIAZEPINES Negative (200ng/ml); URINE CANNABINOIDS (THC) Negative (50ng/ml); URINE COCAINE Negative (300ng/ml); URINE METHADONE Negative (300ng/ml); URINE OPIATES Positive (300ng/ml); URINE PHENCYCLIDINE Negative (25ng/ml)
[2023-02-14 17:31] LABS: BACTERIA 2+; MUCOUS 2+
[2023-02-14 17:36] LABS: ALKALINE PHOSPHATASE 43 U/L (46-116); BUN 30 mg/dl (9-23); CHLORIDE 101 mmol/L (98-107); LIPASE 21 U/L (12-53); POTASSIUM 4.7 mmol/L (3.4-5.1); SGPT/ALT 376 U/L (10-49); TOTAL PROTEIN 7.1 gm/dL (6.0-8.0)
[2023-02-14 17:37] LABS: ETHYL ALCOHOL < 3.0 mg/dl (<3)
[2023-02-14 19:57] LABS: ABG BASE EXCESS 0.1 mmol/L (-2.0-2.0); ARTERIAL BLOOD GAS PH 7.31 (7.35-7.45); ARTERIAL BLOOD GAS PO2 61.5 (80-90)
[2023-02-15] VITALS (11 sets, daily range): BP systolic 106–157; BP diastolic 53–95
[2023-02-15] MEDS ORDERED: NEURONTIN300 MG PO (04:33)
[2023-02-15] MEDS ORDERED: ASPIRIN CHEWABL81 MG PO (04:34)
[2023-02-15] MEDS ORDERED: NORVASC5 MG PO (04:34)
[2023-02-15] MEDS ORDERED: SYMB80 INH (04:36)
[2023-02-15] MEDS ORDERED: TRAZODONE50 MG PO (04:39)
[2023-02-15] MEDS ORDERED: VENT7GM INH (04:40)
[2023-02-15] MEDS ORDERED: TRILEPTAL300 MG PO (04:41)
[2023-02-15 06:21] LABS: ACT PARTIAL THROMBO TIME 23.9 SECONDS (20.0-32.1); INTERNATIONAL NORM RATIO 1.2 (2.0-3.5)
[2023-02-15 06:37] LABS: HEMATOCRIT 48.1 % (37.0-47.0); MEAN CORPUSCULAR HGB 27.4 pg (27.0-31.0); MEAN CORPUSCULAR HGB CONC 30.8 g/dl (33.0-37.0); MEAN PLATELET VOLUME 10.8 fl (9.6-12.3); NUCLEATED RED BLOOD CELL 0.1 10*3/uL (0.0-0.0); NUCLEATED RED BLOOD CELL 0.6 % (0.0-0.0); PLATELET COUNT AUTOMATED 175 10*3/uL (130-400); RED BLOOD COUNT 5.41 10*6/uL (4.10-5.10); RED CELL DISTRI WIDTH 17.5 % (0-14.5); WHITE BLOOD COUNT 10.1 10*3/uL (4.8-10.8)
[2023-02-15 06:38] LABS: MANUAL DIFF REFLEX YES; MEAN CELL VOLUME 88.9 fl (81.0-99.0)
[2023-02-15 06:46] LABS: FREE T4 0.85 ng/dl (0.89-1.76); POTASSIUM 4.3 mmol/L (3.4-5.1); TOTAL PROTEIN 6.7 gm/dL (6.0-8.0)
[2023-02-15 07:08] LABS: TOTAL CELLS COUNTED 100 #CELLS
[2023-02-15 07:09] LABS: BURR CELLS FEW; PLATELET SUFFICIENCY NORMAL (NORMAL); POLYCHROMASIA SLIGHT; TOXIC GRANULATION SLIGHT
[2023-02-15 07:59] LABS: ABG BASE EXCESS 2.2 mmol/L (-2.0-2.0); ARTERIAL BLOOD GAS PH 7.385 (7.35-7.45); ARTERIAL BLOOD GAS PO2 65.4 (80-90)
[2023-02-15 08:30] LABS: VITAMIN D, 25-HYDROXY 48.7 ng/mL (30-100)
[2023-02-16] VITALS: BP 156/76
[2023-02-16 04:18] VITALS: BP 162/69
[2023-02-16 05:11] LABS: HBSAG Negative (Negative); HEP B CORE AB, IGM Negative (Negative); HEPATITIS C ANTIBODY Non Reactive (Non Reactive)
[2023-02-16 06:29] LABS: ALKALINE PHOSPHATASE 38 U/L (46-116); CHLORIDE 107 mmol/L (98-107); POTASSIUM 3.9 mmol/L (3.4-5.1); TOTAL PROTEIN 6.3 gm/dL (6.0-8.0)
[2023-02-16 06:30] LABS: BUN 24 mg/dl (9-23); HEMATOCRIT 44.2 % (37.0-47.0); MEAN CELL VOLUME 88.8 fl (81.0-99.0); MEAN CORPUSCULAR HGB 26.9 pg (27.0-31.0); MEAN CORPUSCULAR HGB CONC 30.3 g/dl (33.0-37.0); MEAN PLATELET VOLUME 10.4 fl (9.6-12.3); NUCLEATED RED BLOOD CELL 0.2 % (0.0-0.0); PLATELET COUNT AUTOMATED 143 10*3/uL (130-400); RED BLOOD COUNT 4.98 10*6/uL (4.10-5.10); RED CELL DISTRI WIDTH 17.3 % (0-14.5); SGPT/ALT 1969 U/L (10-49); WHITE BLOOD COUNT 10.9 10*3/uL (4.8-10.8)
[2023-02-16 06:33] LABS: MANUAL DIFF REFLEX YES
[2023-02-16 07:00] LABS: TOTAL CELLS COUNTED 100 #CELLS
[2023-02-16 07:01] LABS: BURR CELLS FEW; PLATELET SUFFICIENCY NORMAL (NORMAL); POLYCHROMASIA SLIGHT; SCHISTOCYTES FEW; TOXIC GRANULATION SLIGHT
[2023-02-16 08:00] VITALS: BP 171/61
[2023-02-16 12:00] VITALS: BP 153/79
[2023-02-16 16:00] VITALS: BP 157/78
[2023-02-16 20:00] VITALS: BP 162/77
[2023-02-17] VITALS: BP 130/58
[2023-02-17 06:26] LABS: HEMATOCRIT 44.4 % (37.0-47.0); MEAN CELL VOLUME 87.4 fl (81.0-99.0); MEAN CORPUSCULAR HGB 27.2 pg (27.0-31.0); MEAN CORPUSCULAR HGB CONC 31.1 g/dl (33.0-37.0); MEAN PLATELET VOLUME 9.7 fl (9.6-12.3); PLATELET COUNT AUTOMATED 132 10*3/uL (130-400); RED BLOOD COUNT 5.08 10*6/uL (4.10-5.10); RED CELL DISTRI WIDTH 17.1 % (0-14.5); WHITE BLOOD COUNT 9.4 10*3/uL (4.8-10.8)
[2023-02-17 06:29] LABS: MANUAL DIFF REFLEX YES
[2023-02-17 07:01] LABS: PLATELET SUFFICIENCY NORMAL (NORMAL); TOTAL CELLS COUNTED 100 #CELLS
[2023-02-17 07:11] LABS: ALKALINE PHOSPHATASE 39 U/L (46-116); CHLORIDE 102 mmol/L (98-107); POTASSIUM 4.1 mmol/L (3.4-5.1); TOTAL PROTEIN 6.2 gm/dL (6.0-8.0)
[2023-02-17 07:12] LABS: BUN 13 mg/dl (9-23); SGPT/ALT 1204 U/L (10-49)
[2023-02-17 08:00] VITALS: BP 163/86
[2023-02-25] MEDS ORDERED: KLOR-CON 1010 ME1 PO (14:46)
[2023-02-25] MEDS ORDERED: VITAMIN B1250 MCG PO (14:48)
[2023-02-25] MEDS ORDERED: LASIX20 MG PO (14:48)
[2023-02-25] MEDS ORDERED: CYMBALTA60 MG PO (14:52)
[2023-02-25] MEDS ORDERED: COZAAR50 M1 PO (14:53)
[2023-02-25] MEDS ORDERED: NATURE'S BLEND F1 MG PO (14:54)
== END 2023-02-17 11:10 | disposition left against medical advice (07) | DRG 812 ==
LOC: ED 16:15 → EDHOLD 18:06 → 5E 18:06 → ICCU 18:06 → 5E 02-16 18:44
PROVIDERS: Emergency Medicine; Internal Medicine; Student in an Organized Health Care Education/Training Program; ADMIT Student in an Organized Health Care Education/Training Program; ATTEND Student in an Organized Health Care Education/Training Program
PROC: 5A1935Z Respiratory Ventilation, Less than 24 Consecutive Hours (ICD-10-PCS; principal; 2023-02-14)
PROC: 0BH17EZ Insertion of Endotracheal Airway into Trachea, Via Natural or Artificial Opening (ICD-10-PCS; 2023-02-14)
PROC: 5A09357 Assistance with Respiratory Ventilation, Less than 24 Consecutive Hours, Continuous Positive Airway Pressure (ICD-10-PCS; 2023-02-15)
DX: T50.901A Poisoning by unspecified drugs, medicaments and biological substances, accidental (unintentional), initial encounter (principal); A41.9 Sepsis, unspecified organism; J96.01 Acute respiratory failure with hypoxia; E87.20 Acidosis, unspecified; N17.0 Acute kidney failure with tubular necrosis; I10 Essential (primary) hypertension; M06.9 Rheumatoid arthritis, unspecified; R74.01 Elevation of levels of liver transaminase levels; J43.9 Emphysema, unspecified; D75.1 Secondary polycythemia; F17.210 Nicotine dependence, cigarettes, uncomplicated; G92.8 Other toxic encephalopathy; E86.9 Volume depletion, unspecified; J69.0 Pneumonitis due to inhalation of food and vomit; R65.20 Severe sepsis without septic shock; J96.02 Acute respiratory failure with hypercapnia; J15.9 Unspecified bacterial pneumonia; Z53.29 Procedure and treatment not carried out because of patient's decision for other reasons; Z88.6 Allergy status to analgesic agent; Z88.1 Allergy status to other antibiotic agents; Z88.8 Allergy status to other drugs, medicaments and biological substances; Z81.8 Family history of other mental and behavioral disorders; Z90.711 Acquired absence of uterus with remaining cervical stump; Z98.51 Tubal ligation status; Z98.891 History of uterine scar from previous surgery; Z82.49 Family history of ischemic heart disease and other diseases of the circulatory system; Z82.3 Family history of stroke; Z86.718 Personal history of other venous thrombosis and embolism

== ENCOUNTER 2024-02-25 21:15 | Emergency (ER) | payer MEDICARE ==
[~2024-02-25] VITALS: Ht 162.5 cm; Wt 75.7 kg
[~2024-02-25 21:15] MED LIST changes: +ASPIRIN CHEWABL81 MG PO; +COZAAR50 M1 PO; +KLOR-CON 1010 ME1 PO; +LASIX40 MG PO; +LEVOFLOXACIN750 M2 PO; +NORVASC5 MG PO; +SYMB80 INH; +TRAZODONE50 MG PO; +TRILEPTAL300 MG PO; +VENT7GM INH; +VITAMIN B1250 MCG PO
[2024-02-25] MEDS ORDERED: NORVASC10 MG PO (21:49)
[2024-02-25] MEDS ORDERED: LOSARTAN POTAS100 MG PO (21:51)
== END 2024-02-26 00:10 | disposition home or self-care (01) ==
LOC: ED 21:15
DX: S42.031A Displaced fracture of lateral end of right clavicle, initial encounter for closed fracture (principal); S09.8XXA Other specified injuries of head, initial encounter; M54.2 Cervicalgia; M25.552 Pain in left hip; M25.551 Pain in right hip; M25.512 Pain in left shoulder; I10 Essential (primary) hypertension; F32.A Depression, unspecified; J44.9 Chronic obstructive pulmonary disease, unspecified; E78.00 Pure hypercholesterolemia, unspecified; F17.200 Nicotine dependence, unspecified, uncomplicated; Z88.1 Allergy status to other antibiotic agents; Z88.5 Allergy status to narcotic agent; Z88.8 Allergy status to other drugs, medicaments and biological substances; Z86.718 Personal history of other venous thrombosis and embolism; Z98.890 Other specified postprocedural states; Z98.51 Tubal ligation status; Z90.711 Acquired absence of uterus with remaining cervical stump; W10.8XXA Fall (on) (from) other stairs and steps, initial encounter; Y93.89 Activity, other specified; Y92.89 Other specified places as the place of occurrence of the external cause; Y99.8 Other external cause status

== ENCOUNTER → 2024-03-14 | Outpatient (CLI) | payer MEDICARE ==
[~2024-03-14] MED LIST changes: +LOSARTAN POTAS100 MG PO; +NORVASC10 MG PO
[2024-03-14 13:05] LABS: FREE T4 0.84 ng/dl (0.89-1.76)
[2024-03-15 11:08] LABS: THYROID PEROXIDASE (TPO) AB 18 IU/mL (0-34)
[2024-03-15 14:09] LABS: THYROGLOBULIN ANTIBODY <1.0 IU/mL (0.0-0.9)
== END | disposition home or self-care (01) ==
LOC: LAB 11:36
PROVIDERS: ATTEND Nurse Practitioner Primary Care
DX: M47.816 Spondylosis without myelopathy or radiculopathy, lumbar region (principal); M48.061 Spinal stenosis, lumbar region without neurogenic claudication

== ENCOUNTER 2025-02-09 16:35 | Emergency (ER) | payer MEDICARE, MEDICAID ==
[~2025-02-09] VITALS: Ht 162.5 cm; Wt 70.8 kg
== END 2025-02-09 18:22 | disposition home or self-care (01) ==
LOC: ED 16:35
DX: S52.515A Nondisplaced fracture of left radial styloid process, initial encounter for closed fracture (principal); Z88.1 Allergy status to other antibiotic agents; Z88.8 Allergy status to other drugs, medicaments and biological substances; Z88.5 Allergy status to narcotic agent; Z79.899 Other long term (current) drug therapy; Z79.82 Long term (current) use of aspirin; Z90.711 Acquired absence of uterus with remaining cervical stump; Z98.890 Other specified postprocedural states; Z87.891 Personal history of nicotine dependence; W18.09XA Striking against other object with subsequent fall, initial encounter; Y93.01 Activity, walking, marching and hiking; Y92.480 Sidewalk as the place of occurrence of the external cause; Y99.8 Other external cause status